=== PATIENT | female | born 2000 | race Caucasian/White ===

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

== ENCOUNTER 2022-01-12 05:03 | Emergency (ER) | payer OTHER ==
[2022-01-12 05:17] VITALS: BP 118/81; PULSE 79; TEMP 98.1; BMI 21.2
[2022-01-12] MEDS ORDERED: POLYETHYLENE GLYCOL (HEALTHYLAX) 3350 17 GM PACKET PO ONE (05:41)
[2022-01-12] MEDS ORDERED: POLYETHYLENE GLYCOL (HEALTHYLAX) 3350 17 GM PACKET ONE (06:30)
[2022-01-12 06:32] LABS: BASO % 0.3 % (0-2.0); EOS % 2.1 % (0-4.5); HEMATOCRIT 39.1 % (32.4-45.2); HEMOGLOBIN 13.2 GM/dL (10.7-15.3); LYMPH % 43.3 % (8-40); MCH 31.9 pg (25.7-33.7); MCHC 33.7 g/dl (32.0-36.0); MEAN CELL VOLUME 94.7 fl (80-96); MEAN PLT VOLUME 8.1 fl (7.5-11.1); MONO % 9.4 % (3.8-10.2); NEUT % 44.9 % (42.8-82.8); PLATELET COUNT 238 10^3/uL (134-434); RBC 4.13 M/mm3 (3.60-5.2); RDW 12.7 % (11.6-15.6); WHITE BLOOD COUNT 4.3 K/mm3 (4.0-10.0)
[2022-01-12 06:50] LABS: CHLORIDE 107 mmol/L (98-107); SODIUM 139 mmol/L (136-145)
[2022-01-12 06:51] LABS: CALCIUM 8.8 mg/dL (8.5-10.1)
[2022-01-12 06:52] LABS: ALBUMIN 4.2 g/dl (3.4-5.0); ANION GAP 6 MMOL/L (8-16); BLOOD UREA NITROGEN 12.5 mg/dL (7-18); CO2 25 mmol/L (21-32); GLUCOSE,RANDOM 87 mg/dL (74-106)
[2022-01-12 06:55] LABS: CREATININE 0.8 mg/dL (0.55-1.3); SGOT/AST 14 U/L (15-37); SGPT/ALT 20 U/L (13-61)
[2022-01-12 06:57] LABS: BILIRUBIN,TOTAL 1.7 mg/dL (0.2-1); TOT PROT 7.4 g/dl (6.4-8.2)
[2022-01-12 06:58] LABS: ALK PHOS 56 U/L (45-117)
[2022-01-12] MEDS ORDERED: POLYETHYLENE GLYCOL (HEALTHYLAX) 3350 17 GM PACKET PO SCH (10:00)
== END 2022-01-12 10:32 | disposition home or self-care (01) ==
LOC: JER 05:03
DX: F41.9 Anxiety disorder, unspecified (principal)
CPT/HCPCS: 36415; 80053; 80307; 85025; 93005; 93010; 99284-25

== ENCOUNTER 2022-09-01 01:55 | Emergency (ER) | payer OTHER ==
[2022-09-01 02:10] VITALS: BP 116/75; PULSE 90; RESP 16; TEMP 97.9; BMI 22.1
[2022-09-01] MEDS ORDERED: FAMOTIDINE 20 MG/50 ML IVPB 20 MG/50 ML MG IVPB ONE ×2 (02:11→02:18)
[2022-09-01] MEDS ORDERED: SODIUM CHLORIDE 1,000 ML IV ONE (02:13)
[2022-09-01 03:07] LABS: BASO % 0.3 % (0-2.0); EOS % 1.8 % (0-4.5); HEMATOCRIT 34.8 % (32.4-45.2); HEMOGLOBIN 11.9 GM/dL (10.7-15.3); LYMPH % 30.8 % (8-40); MCH 32.2 pg (25.7-33.7); MCHC 34.3 g/dl (32.0-36.0); MEAN CELL VOLUME 93.9 fl (80-96); MEAN PLT VOLUME 8.3 fl (7.5-11.1); MONO % 7.3 % (3.8-10.2); NEUT % 59.8 % (42.8-82.8); PLATELET COUNT 234 10^3/uL (134-434); RBC 3.71 M/mm3 (3.60-5.2); RDW 12.6 % (11.6-15.6)
[2022-09-01 03:08] LABS: PH,URINE 5.5 (5.0-8.0); URINE APPEARANCE CLEAR; URINE BILIRUBIN NEGATIVE (NEGATIVE); URINE COLOR YELLOW; URINE GLUCOSE (UA) NEGATIVE (NEGATIVE); URINE KETONE NEGATIVE (NEGATIVE); URINE LEUK ESTERASE NEGATIVE (NEGATIVE); URINE NITRITE NEGATIVE (NEGATIVE); URINE PROTEIN NEGATIVE (NEGATIVE); URINE UROBILINOGEN 0.2 mg/dL (0.2-1.0)
[2022-09-01 03:24] LABS: CALCIUM 8.8 mg/dL (8.5-10.1)
[2022-09-01 03:25] LABS: BLOOD UREA NITROGEN 17.4 mg/dL (7-18)
[2022-09-01 03:28] LABS: CREATININE 0.7 mg/dL (0.55-1.3)
[2022-09-01 03:30] LABS: BILIRUBIN,TOTAL 0.9 mg/dL (0.2-1)
[2022-09-01 09:22] LABS: HCG,QUALITATIVE URINE Negative
== END 2022-09-01 03:35 | disposition home or self-care (01) ==
LOC: FER 01:55
PROC: 3E033GC Introduction of Other Therapeutic Substance into Peripheral Vein, Percutaneous Approach (ICD-10-PCS; principal; 2022-09-01)
PROC: 3E0337Z Introduction of Electrolytic and Water Balance Substance into Peripheral Vein, Percutaneous Approach (ICD-10-PCS; 2022-09-01)
DX: R10.13 Epigastric pain (principal)
CPT/HCPCS: 36415; 80053; 81003; 84703; 85025; 99284-25

== ENCOUNTER 2022-11-14 11:16 | Emergency (ER) | payer OTHER ==
[2022-11-14 11:27] VITALS: TEMP 99.2; BMI 23.1
[2022-11-14] MEDS ORDERED: PANTOPRAZOLE SODIUM 40 MG VIAL IVPUSH ONE (12:37)
[2022-11-14] MEDS ORDERED: ACETAMINOPHEN 500 MG TABLET (FP) PO ONE (12:37)
[2022-11-14] MEDS ORDERED: ONDANSETRON 4 MG/2 ML VIAL IVPUSH ONE (12:37)
[2022-11-14] MEDS ORDERED: SODIUM CHLORIDE 0.9% 500 ML INFUS.BAG IV ONE (12:37)
[2022-11-14 13:03] LABS: BASO % 0.4 % (0-2.0); HEMATOCRIT 42.5 % (32.4-45.2); LYMPH % 21.8 % (8-40); MCHC 32.9 g/dl (32.0-36.0); MEAN CELL VOLUME 94.1 fl (80-96); MEAN PLT VOLUME 7.4 fl (7.5-11.1); MONO % 6.8 % (3.8-10.2); PLATELET COUNT 270 10^3/uL (134-434); RBC 4.52 M/mm3 (3.60-5.2); RDW 12.8 % (11.6-15.6); WHITE BLOOD COUNT 5.6 K/mm3 (4.0-10.0)
[2022-11-14 13:12] LABS: INR 1.09 (0.83-1.09); PROTHROMBIN TIME (PATIENT) 12.6 SEC (9.7-13.0)
[2022-11-14 13:22] LABS: CALCIUM 9.7 mg/dL (8.5-10.1)
[2022-11-14 13:23] LABS: ALBUMIN 4.6 g/dl (3.4-5.0); BLOOD UREA NITROGEN 8.9 mg/dL (7-18)
[2022-11-14 13:26] LABS: CREATININE 0.9 mg/dL (0.55-1.3)
[2022-11-14 13:27] LABS: BILIRUBIN,TOTAL 2.6 mg/dL (0.2-1)
[2022-11-14 13:28] LABS: TOT PROT 8.4 g/dl (6.4-8.2)
[2022-11-14] MEDS ORDERED: ONDANSETRON 4 MG/2 ML VIAL ONE (14:20)
[2022-11-14] MEDS ORDERED: PANTOPRAZOLE SODIUM 40 MG VIAL ONE (14:20)
[2022-11-14] MEDS ORDERED: ACETAMINOPHEN INJECTION 100 ML IVPB ONE (14:20)
[2022-11-14 14:44] LABS: PH,URINE 5.5 (5.0-8.0); URINE APPEARANCE CLEAR; URINE BILIRUBIN NEGATIVE (NEGATIVE); URINE COLOR YELLOW; URINE GLUCOSE (UA) NEGATIVE (NEGATIVE); URINE KETONE NEGATIVE (NEGATIVE); URINE LEUK ESTERASE NEGATIVE (NEGATIVE); URINE NITRITE NEGATIVE (NEGATIVE); URINE PROTEIN NEGATIVE (NEGATIVE); URINE UROBILINOGEN 0.2 mg/dL (0.2-1.0)
[2022-11-14 14:46] LABS: HCG,QUALITATIVE URINE Negative
[2022-11-14 15:28] VITALS: BP 100/70; PULSE 90; RESP 16
== END 2022-11-14 15:29 | disposition home or self-care (01) ==
LOC: JER 11:16
PROC: 3E033GC Introduction of Other Therapeutic Substance into Peripheral Vein, Percutaneous Approach (ICD-10-PCS; principal; 2022-11-14)
DX: A08.4 Viral intestinal infection, unspecified (principal)
CPT/HCPCS: 0241U-QW; 36415; 80053; 81003; 83690; 84703; 85025; 85610; 86850; 86900; 86901; 87086; 99284-25

== ENCOUNTER 2023-05-05 20:20 | Emergency (ER) | payer OTHER ==
[2023-05-05 20:30] VITALS: BP 90/66; PULSE 87; RESP 20; TEMP 98.1; BMI 26.6
[2023-05-05] MEDS ORDERED: ONDANSETRON 4 MG/2 ML VIAL IVPUSH ONE (21:47)
[2023-05-05] MEDS ORDERED: ACETAMINOPHEN 1000 MG/100 ML BAG IVPB ONE (21:47)
[2023-05-05] MEDS ORDERED: FAMOTIDINE 20 MG/50 ML IVPB 20 MG/50 ML MG IVPB ONE ×2 (21:47→21:53)
[2023-05-05] MEDS ORDERED: SODIUM CHLORIDE 1,000 ML IV STA (21:47)
[2023-05-05] MEDS ORDERED: ACETAMINOPHEN INJECTION 100 ML IVPB ONE (21:53)
[2023-05-05] MEDS ORDERED: ONDANSETRON 4 MG/2 ML VIAL ONE (21:53)
[2023-05-05] MEDS ORDERED: METOCLOPRAMIDE HCL INJECTION 10 MG/2 ML VIAL IVPUSH ONE (21:57)
[2023-05-05 22:16] LABS: EPI CELLS 14 /uL (0-25.1); HYALINE CASTS 0 /uL (0-3.1); URINE APPEARANCE CLEAR; URINE BACTERIA 516 /uL (0-1359); URINE BILIRUBIN NEGATIVE (NEGATIVE); URINE COLOR YELLOW; URINE GLUCOSE (UA) NEGATIVE (NEGATIVE); URINE KETONE TRACE (NEGATIVE); URINE LEUK ESTERASE TRACE (NEGATIVE); URINE NITRITE NEGATIVE (NEGATIVE); URINE PROTEIN NEGATIVE (NEGATIVE); URINE RBC 14 /uL (0-23.9); URINE UROBILINOGEN 0.2 mg/dL (0.2-1.0); URINE WBC 16 /uL (0-25.8)
[2023-05-05 22:28] LABS: BASO % 0.6 % (0-2.0); EOS % 2.2 % (0-4.5); HEMATOCRIT 38.3 % (32.4-45.2); HEMOGLOBIN 13.2 GM/dL (10.7-15.3); LYMPH % 31.8 % (8-40); MCH 31.5 pg (25.7-33.7); MCHC 34.5 g/dl (32.0-36.0); MEAN CELL VOLUME 91.3 fl (80-96); NEUT % 55.4 % (42.8-82.8); PLATELET COUNT 267 10^3/uL (134-434); RDW 13.1 % (11.6-15.6); WHITE BLOOD COUNT 5.3 K/mm3 (4.0-10.0)
[2023-05-05] MEDS ORDERED: METOCLOPRAMIDE HCL INJECTION 10 MG/2 ML VIAL ONE (22:34)
[2023-05-05 22:53] LABS: POTASSIUM 4.1 mmol/L (3.5-5.1)
[2023-05-05 22:56] LABS: ALBUMIN 4.3 g/dl (3.4-5.0); BLOOD UREA NITROGEN 8.1 mg/dL (7-18); CALCIUM 9.5 mg/dL (8.5-10.1)
[2023-05-05 22:59] LABS: CREATININE 0.9 mg/dL (0.55-1.3)
[2023-05-05 23:01] LABS: BILIRUBIN,TOTAL 1.7 mg/dL (0.2-1); TOT PROT 7.4 g/dl (6.4-8.2)
== END 2023-05-06 01:41 | disposition home or self-care (01) ==
LOC: JER 20:20
PROC: 3E03329 Introduction of Other Anti-infective into Peripheral Vein, Percutaneous Approach (ICD-10-PCS; principal; 2023-05-05)
PROC: 3E033NZ Introduction of Analgesics, Hypnotics, Sedatives into Peripheral Vein, Percutaneous Approach (ICD-10-PCS; 2023-05-05)
PROC: 3E033GC Introduction of Other Therapeutic Substance into Peripheral Vein, Percutaneous Approach (ICD-10-PCS; 2023-05-05)
PROC: 3E033GC Introduction of Other Therapeutic Substance into Peripheral Vein, Percutaneous Approach (ICD-10-PCS; 2023-05-05)
PROC: 3E0337Z Introduction of Electrolytic and Water Balance Substance into Peripheral Vein, Percutaneous Approach (ICD-10-PCS; 2023-05-05)
DX: R10.12 Left upper quadrant pain (principal); R11.0 Nausea; R19.7 Diarrhea, unspecified
CPT/HCPCS: 0241U-QW; 36415; 76705-TC; 80053; 81003; 83690; 84703; 85025; 87086; 99285-25

== ENCOUNTER 2023-06-12 03:37 | Emergency (ER) | payer OTHER ==
[2023-06-12 03:46] VITALS: TEMP 98.4; BMI 25.0
[2023-06-12] MEDS ORDERED: ONDANSETRON 4 MG/2 ML VIAL IVPUSH ONE (04:18)
[2023-06-12] MEDS ORDERED: ONDANSETRON 4 MG/2 ML VIAL ONE (04:35)
[2023-06-12] MEDS ORDERED: ACETAMINOPHEN 1000 MG/100 ML BAG IVPB ONE (04:50)
[2023-06-12] MEDS ORDERED: ACETAMINOPHEN INJECTION 100 ML IVPB ONE (04:51)
[2023-06-12] MEDS ORDERED: FAMOTIDINE 20 MG/50 ML IVPB 20 MG/50 ML MG IVPB ONE ×2 (05:00→05:02)
[2023-06-12] MEDS ORDERED: MAG HYDROX/AL HYDROX/SIMETH 30 ML UNIT-DOSE CUP PO ONE (05:00)
[2023-06-12] MEDS ORDERED: MAG HYDROX/AL HYDROX/SIMETH 30 ML UNIT-DOSE CUP ONE (05:02)
[2023-06-12 05:22] LABS: URINE APPEARANCE CLEAR; URINE BILIRUBIN NEGATIVE (NEGATIVE); URINE COLOR YELLOW; URINE GLUCOSE (UA) NEGATIVE (NEGATIVE); URINE KETONE 1+ (NEGATIVE); URINE LEUK ESTERASE NEGATIVE (NEGATIVE); URINE NITRITE NEGATIVE (NEGATIVE); URINE PROTEIN NEGATIVE (NEGATIVE); URINE UROBILINOGEN 0.2 mg/dL (0.2-1.0)
[2023-06-12] MEDS ORDERED: SODIUM CHLORIDE 0.9% 500 ML INFUS.BAG IV ONE ×2 (05:35→05:39)
[2023-06-12 05:42] LABS: POTASSIUM 3.8 mmol/L (3.5-5.1)
[2023-06-12 05:44] LABS: ALBUMIN 4.2 g/dl (3.4-5.0); BASO % 0.4 % (0-2.0); CALCIUM 9.7 mg/dL (8.5-10.1); EOS % 2.7 % (0-4.5); HEMATOCRIT 38.2 % (32.4-45.2); HEMOGLOBIN 12.9 GM/dL (10.7-15.3); LYMPH % 30.5 % (8-40); MCH 31.4 pg (25.7-33.7); MCHC 33.7 g/dl (32.0-36.0); MEAN CELL VOLUME 93.3 fl (80-96); NEUT % 58.4 % (42.8-82.8); PLATELET COUNT 264 10^3/uL (134-434); RDW 12.9 % (11.6-15.6); WHITE BLOOD COUNT 5.5 K/mm3 (4.0-10.0)
[2023-06-12 05:45] LABS: BLOOD UREA NITROGEN 7.8 mg/dL (7-18)
[2023-06-12 05:47] LABS: CREATININE 0.9 mg/dL (0.55-1.3)
[2023-06-12] MEDS ORDERED: RACEPINEPHRINE IH SOL 2.25% 11.25 MG/0.5 ML VIAL NEB ONE (05:50)
[2023-06-12 05:51] LABS: BILIRUBIN,TOTAL 1.6 mg/dL (0.2-1); TOT PROT 7.5 g/dl (6.4-8.2)
[2023-06-12] MEDS ORDERED: methylPREDNISolone NA SUCC 125 MG/2 ML VIAL ONE (06:03)
[2023-06-12] MEDS ORDERED: BENZTROPINE MESYLATE 1 MG TABLET PO ONE (06:17)
[2023-06-12 06:29] VITALS: RESP 19
[2023-06-12] MEDS ORDERED: methylPREDNISolone NA SUCC 125 MG/2 ML VIAL IVPUSH ONE (06:45)
[2023-06-12] MEDS ORDERED: RACEPINEPHRINE IH SOL 2.25% 11.25 MG/0.5 ML VIAL IH ONE (06:45)
[2023-06-12] MEDS ORDERED: FLUCONAZOLE 150 MG TABLET PO ONE ×2 (08:09→08:40)
[2023-06-12 09:30] VITALS: BP 99/58; PULSE 75
== END 2023-06-12 09:36 | disposition home or self-care (01) ==
LOC: JER 03:37
PROC: 3E033GC Introduction of Other Therapeutic Substance into Peripheral Vein, Percutaneous Approach (ICD-10-PCS; principal; 2023-06-12)
PROC: 3E033NZ Introduction of Analgesics, Hypnotics, Sedatives into Peripheral Vein, Percutaneous Approach (ICD-10-PCS; 2023-06-12)
PROC: 3E033GC Introduction of Other Therapeutic Substance into Peripheral Vein, Percutaneous Approach (ICD-10-PCS; 2023-06-12)
PROC: 3E033GC Introduction of Other Therapeutic Substance into Peripheral Vein, Percutaneous Approach (ICD-10-PCS; 2023-06-12)
PROC: 3E033GC Introduction of Other Therapeutic Substance into Peripheral Vein, Percutaneous Approach (ICD-10-PCS; 2023-06-12)
DX: R10.13 Epigastric pain (principal); R10.12 Left upper quadrant pain; B37.31 Acute candidiasis of vulva and vagina
CPT/HCPCS: 0241U-QW; 36415; 70360-TC-FY; 80053; 81003; 83690; 84703; 85025; 87491; 87591; 99284-25

== ENCOUNTER 2023-09-16 12:28 | Emergency (ER) | payer OTHER ==
[2023-09-16 12:44] VITALS: BP 111/66; PULSE 87; RESP 18; TEMP 97.8; BMI 23.1
[2023-09-16] MEDS ORDERED: ACETAMINOPHEN 1000 MG/100 ML BAG IVPB ONE ×2 (13:21→13:53)
[2023-09-16] MEDS ORDERED: ACETAMINOPHEN INJECTION 100 ML IVPB ONE (13:32)
[2023-09-16] MEDS ORDERED: ACETAMINOPHEN 500 MG TABLET (FP) PO ONE (13:48)
[2023-09-16] MEDS ORDERED: FAMOTIDINE 20 MG TABLET PO ONE (13:48)
[2023-09-16] MEDS ORDERED: FAMOTIDINE 20 MG TABLET ONE (14:01)
[2023-09-16 14:28] LABS: BASO % 0.9 % (0-2.0); HEMATOCRIT 40.3 % (32.4-45.2); HEMOGLOBIN 13.3 GM/dL (10.7-15.3); LYMPH % 38.9 % (8-40); MCH 31.4 pg (25.7-33.7); MONO % 9.8 % (3.8-10.2); NEUT % 48.4 % (42.8-82.8); PLATELET COUNT 301 10^3/uL (134-434); RBC 4.25 M/mm3 (3.60-5.2); RDW 12.8 % (11.6-15.6); WHITE BLOOD COUNT 4.7 K/mm3 (4.0-10.0)
[2023-09-16 14:55] LABS: POTASSIUM 3.9 mmol/L (3.5-5.1)
[2023-09-16 14:56] LABS: CALCIUM 9.7 mg/dL (8.5-10.1)
[2023-09-16 14:57] LABS: ALBUMIN 4.4 g/dl (3.4-5.0); BLOOD UREA NITROGEN 6.2 mg/dL (7-18)
[2023-09-16 15:00] LABS: CREATININE 0.8 mg/dL (0.55-1.3)
[2023-09-16 15:01] LABS: BILIRUBIN,TOTAL 2.8 mg/dL (0.2-1); TOT PROT 7.5 g/dl (6.4-8.2)
[2023-09-16 15:30] LABS: EPI CELLS 13 /uL (0-25.1); HYALINE CASTS 0 /uL (0-3.1); PH,URINE 6.5 (5.0-8.0); URINE APPEARANCE CLEAR; URINE BACTERIA 414 /uL (0-1359); URINE BILIRUBIN NEGATIVE (NEGATIVE); URINE COLOR YELLOW; URINE GLUCOSE (UA) NEGATIVE (NEGATIVE); URINE KETONE TRACE (NEGATIVE); URINE LEUK ESTERASE TRACE (NEGATIVE); URINE NITRITE NEGATIVE (NEGATIVE); URINE PROTEIN NEGATIVE (NEGATIVE); URINE RBC 5 /uL (0-23.9); URINE UROBILINOGEN 0.2 mg/dL (0.2-1.0); URINE WBC 18 /uL (0-25.8)
== END 2023-09-16 17:19 | disposition home or self-care (01) ==
LOC: JER 12:28
PROC: 3E033GC Introduction of Other Therapeutic Substance into Peripheral Vein, Percutaneous Approach (ICD-10-PCS; principal; 2023-09-16)
DX: R10.9 Unspecified abdominal pain (principal); R11.0 Nausea; R63.0 Anorexia; R30.0 Dysuria; R19.7 Diarrhea, unspecified
CPT/HCPCS: 36415; 80053; 81003; 83690; 84703; 85025; 87086; 87186

== ENCOUNTER 2023-09-22 02:18 | Emergency (ER) | payer OTHER ==
[2023-09-22 02:30] VITALS: BP 104/67; PULSE 92; RESP 20; TEMP 98.3; BMI 16.4
[2023-09-22] MEDS ORDERED: ALBUTEROL SO4 2.5/IPRATROPIUM 0.5 INH SOL 3 ML VIAL.NEB. NEB ONE ×2 (02:45→02:47)
[2023-09-22] MEDS ORDERED: KETOROLAC TROMETHAMINE 30 MG/1 ML VIAL IM ONE (03:16)
[2023-09-22] MEDS ORDERED: DEXAMETHASONE 4 MG TABLET (FP) PO ONE (03:16)
[2023-09-22] MEDS ORDERED: DEXAMETHASONE 4 MG TABLET (FP) ONE (03:18)
[2023-09-22] MEDS ORDERED: KETOROLAC TROMETHAMINE 30 MG/1 ML VIAL ONE (03:19)
== END 2023-09-22 03:40 | disposition home or self-care (01) ==
LOC: JER 02:18
PROC: 3E0233Z Introduction of Anti-inflammatory into Muscle, Percutaneous Approach (ICD-10-PCS; principal; 2023-09-22)
PROC: 3E0F7GC Introduction of Other Therapeutic Substance into Respiratory Tract, Via Natural or Artificial Opening (ICD-10-PCS; 2023-09-22)
DX: R06.02 Shortness of breath (principal); R09.81 Nasal congestion; R05.9 Cough, unspecified; J06.9 Acute upper respiratory infection, unspecified; Z20.822 Contact with and (suspected) exposure to COVID-19
CPT/HCPCS: 0241U-QW; 99284-25

== ENCOUNTER 2023-10-03 17:27 | Emergency (ER) | payer OTHER ==
[2023-10-03 18:01] VITALS: BMI 23.1
[2023-10-03 18:03] LABS: BASO % 0.6 % (0-2.0); EOS % 2.1 % (0-4.5); HEMATOCRIT 42.3 % (32.4-45.2); HEMOGLOBIN 14.4 GM/dL (10.7-15.3); LYMPH % 36.4 % (8-40); MCH 31.7 pg (25.7-33.7); MEAN PLT VOLUME 7.9 fl (7.5-11.1); MONO % 10.1 % (3.8-10.2); NEUT % 50.8 % (42.8-82.8); PLATELET COUNT 323 10^3/uL (134-434); RBC 4.54 M/mm3 (3.60-5.2); RDW 13.2 % (11.6-15.6); WHITE BLOOD COUNT 5.4 K/mm3 (4.0-10.0)
[2023-10-03 18:13] LABS: POTASSIUM 3.8 mmol/L (3.5-5.1)
[2023-10-03 18:15] LABS: ALBUMIN 4.4 g/dl (3.4-5.0)
[2023-10-03 18:18] LABS: CREATININE 0.9 mg/dL (0.55-1.3)
[2023-10-03 18:19] LABS: BILIRUBIN,TOTAL 1.1 mg/dL (0.2-1); TOT PROT 7.8 g/dl (6.4-8.2)
[2023-10-03 18:36] LABS: LACTIC ACID 2.4 mmol/L (0.4-2.0)
[2023-10-03] MEDS ORDERED: ACETAMINOPHEN 500 MG TABLET (FP) PO ONE (18:51)
[2023-10-03] MEDS ORDERED: ACETAMINOPHEN 500 MG TABLET (FP) ONE (18:54)
[2023-10-03 19:03] VITALS: RESP 18
[2023-10-03] MEDS ORDERED: FAMOTIDINE 20 MG/50 ML IVPB 20 MG/50 ML MG IVPB ONE ×2 (19:48→19:59)
[2023-10-03] MEDS ORDERED: levETIRAcetam 500 MG TABLET (FP) PO ONE ×2 (20:22→20:46)
[2023-10-03 21:48] VITALS: BP 121/68; PULSE 64; TEMP 98.1
== END 2023-10-03 22:47 | disposition home or self-care (01) ==
LOC: JER 17:27
PROC: 3E033GC Introduction of Other Therapeutic Substance into Peripheral Vein, Percutaneous Approach (ICD-10-PCS; principal; 2023-10-03)
PROC: 3E033GC Introduction of Other Therapeutic Substance into Peripheral Vein, Percutaneous Approach (ICD-10-PCS; 2023-10-03)
DX: R56.9 Unspecified convulsions (principal); G43.909 Migraine, unspecified, not intractable, without status migrainosus
CPT/HCPCS: 36415; 80053; 83605; 84703; 85025; 99284-25

== ENCOUNTER 2024-02-10 15:22 | Emergency (ER) | payer OTHER ==
[2024-02-10 15:49] VITALS: BP 130/78; PULSE 69; RESP 18; TEMP 97.6; BMI 23.3
[2024-02-10] MEDS ORDERED: FAMOTIDINE 20 MG TABLET ONE (16:29)
[2024-02-10] MEDS ORDERED: predniSONE 20 MG TABLET (UD) ONE (16:29)
[2024-02-10] MEDS ORDERED: diphenhydrAMINE HCL 25 MG CAPSULE (FP) PO ONE (16:30)
[2024-02-10] MEDS: predniSONE 20 MG TABLET (UD) PO ONE (16:33)
[2024-02-10] MEDS: diphenhydrAMINE HCL 25 MG CAPSULE (FP) PO ONE (16:33)
[2024-02-10] MEDS: FAMOTIDINE 10 MG TABLET PO ONE (16:33)
== END 2024-02-10 18:40 | disposition home or self-care (01) ==
LOC: JER 15:22
DX: R22.0 Localized swelling, mass and lump, head (principal); T78.1XXA Other adverse food reactions, not elsewhere classified, initial encounter
CPT/HCPCS: 99283-25